=== PATIENT | male | born 1965 | race Caucasian/White ===

== ENCOUNTER 2023-05-03 02:24 | Outpatient (CLI) | payer MEDICAID, SELFPAY ==
--- NOTE | 2023-05-03 07:45 | DI.CT_ITS ---
Exam(s) CT NECK W EXAM: CT NECK W CLINICAL HISTORY: left zone II neck mass, R22.1. TECHNIQUE: Imaging Protocol: Axial computed tomography images with coronal and sagittal reformatted images were created and reviewed CONTRAST MATERIAL: Intravenous: Omnipaque 350 Contrast volume:100 ml contrast COMPARISON: None FINDINGS: Parotids: Right normal. Left: 1.8 x 1.8 x 2.5 centimeter smoothly marginated solid-appearing mass posterior inferior left pa rotid gland, superficial lobe.. Additional 6 millimeter nodule seen anteriorly. Both lesions show edgar ogeneous attenuation and homogeneous enhancement. Lymphadenopathy: There are scattered lymph nodes seen along the level one to level three all measuri ng less than 8 mm in short axis diameter which are physiologic in nature. The findings could represen t benign mixed tumor versus Warthin's tumor. Submandibular glands: Normal. Thyroid: Question a nodule at the lower pole of the right lobe. Carotids/Jugular: Mild plaque at the common carotid bulbs. No significant stenosis or dissection.. Soft tissues: The floor the mouth is unremarkable. The epiglottis and vocal cords are within normal limits. Lymph nodes: Within normal limits. Lungs: Dependent changes. Mild emphysematous changes. Bones: Degenerative changes of the cervical spine. Visualized portions of the brain and orbits: Unremarkable. Sinuses and mastoids: Clear. IMPRESSION: 1.8 by 2.5 centimeter circumscribed mass left parotid which could represent a benign mixed tumor vers us Warthin's tumor. RADIATION DOSE DELIVERED: 339.03mGy.cm Total DLP DATA REPOSITORY: All CT scans at this facility are submitted to the National Radiology Data Registry (NRDR) Dose Index Registry (DIR) with the [employer] ([employer]). RADIATION OPTIMIZATION: All CT scans at this facility use at least one of these dose optimization te chniques: automated exposure control; mA and/or kV adjustment per patient size (includes targeted exa ms where dose is matched to clinical indication); or iterative reconstruction.
[2023-05-03] MEDS: Omnipaque 350 MG/ML 100 ML BTL IJ (10:10)
[2023-05-03] MEDS: Normal Saline - Diluent 50 ML VIAL IJ (10:11)
== END 2023-05-03 02:44 ==
PROVIDERS: PCP Family Medicine; Visit Provider Otolaryngology
DX: R22.1 Localized swelling, mass and lump, neck (principal)
CPT/HCPCS: 70491; J3490

== ENCOUNTER 2023-06-07 14:44 | Outpatient (REF) | payer MEDICAID, SELFPAY ==
--- NOTE | 2023-06-07 10:10 | PAPNONF_PTH ---
PATIENT: Abdulkadir Lind LOC: [facility] U#:[id number] AGE/SX: 57/M ROOM: RE06/07/[address]: Arian Doss MD : 1965 BED: DIS: 06/07/2023 SPEC #: [id number] RECD: 06/07/23 18:06 STATUS: JONI REJusten #: [id number] NGHIA: 06/07/23 10:[address]: Arian Doss DEPT: REPLACED BY [facility] Cyt[facility] RECD BY: Tawanna Cash ENTERED: 06/07/23 18:08 SP TYPE: PATIRCE SANTIZO DR: Melo Ugalde Tissues: 1 - BODY FLUID CYTO-FINE NEEDLE ASPIRATE-[facility] Procedures: BODY FLUID CYTO-FINE NEEDLE ASPIRATE-[facility] Comments: [id number] (SUBMITTED IN CYT[facility]YT) (REFRIGERATED)
== END 2023-06-07 14:45 | disposition home or self-care (01) ==
LOC: LBN 14:44
PROVIDERS: PCP Family Medicine; Visit Provider Otolaryngology
DX: K11.8 Other diseases of salivary glands (principal)
CPT/HCPCS: 88104

== ENCOUNTER 2024-12-06 15:58 | Outpatient (CLI) | payer MEDICAID, SELFPAY ==
--- NOTE | 2024-12-06 10:00 | DI.RAD_ITS ---
Exam(s) XR SHOULDER RT COMPLETE 2+V EXAM: XR SHOULDER RT COMPLETE 2+V CLINICAL HISTORY: RIGHT SHOULDER PAIN. TECHNIQUE: 2D digital imaging was performed. Two views. COMPARISON: No exams were available for comparison FINDINGS: BONES: No acute fracture is present. No bony destructive lesion is seen. JOINTS: No dislocation present. No significant spurring at the AC joint or glenoid. Mild narrowing of the glenohumeral joint space. SOFT TISSUE: Normal. IMPRESSION: Mild degenerative changes. DATA REPOSITORY: RADIATION DOSE DELIVERED:
--- NOTE | 2024-12-06 10:15 | DI.RAD_ITS ---
Exam(s) XR CERVICAL SP FLOYD TRAUMA 2-3V EXAM: XR CERVICAL SP FLOYD TRAUMA 2-3V CLINICAL HISTORY: NECK PAIN. TECHNIQUE: 2D digital imaging was performed. Three views. COMPARISON: CT CT NECK W from 05/03/2023 FINDINGS: BONES: No fracture or destructive lesion. Vertebral bodies are unremarkable. DISKS: There is mild narrowing of the C4-5 disc space. There is moderate narrowing of the C5-6 and C 6-7 disc spaces. Endplate osteophytes are present at the levels. Intervertebral disc spaces are daryl ntained. ALIGNMENT: Degenerative straightening of the normal cervical lordosis. The odontoid and atlantoaxial articulations are normal. SOFT TISSUE: Normal. The lung apices are clear. IMPRESSION: Degenerative changes, greatest at C5-6 and C6-7. DATA REPOSITORY: RADIATION DOSE DELIVERED:
== END 2024-12-06 15:59 | disposition home or self-care (01) ==
LOC: DIORS 15:58
PROVIDERS: PCP Family Medicine; Visit Provider Student in an Organized Health Care Education/Training Program
DX: M25.511 Pain in right shoulder (principal); M54.2 Cervicalgia
CPT/HCPCS: 72040; 73030

== ENCOUNTER 2025-03-06 01:21 | Outpatient (CLI) | payer MEDICAID, SELFPAY ==
--- NOTE | 2025-03-06 07:15 | DI.US_ITS ---
Exam(s) US NEEDLE LOCAL OTHER WO RAD EXAM: Right thyroid nodules,ultrasound guided bx,e04.2 COMPARISON: No exams were available for comparison TECHNIQUE: Ultrasound performed using standard protocol. FINDINGS: Sonography was provided for Dr. Doss during the performance of a right thyroid nodule biopsies. P maxi refer to the procedure report for complete details. DATA REPOSITORY:
--- NOTE | 2025-03-06 11:20 | PAPNONF_PTH ---
PATIENT: Abdulkadir Lind LOC: [facility] U#:[id number] AGE/SX: 59/M ROOM: RE03/06/[address]: Arian Doss MD : 1965 BED: DIS: 03/06/2025 SPEC #: [id number] RECD: 03/06/25 13:14 STATUS: JONI REQ #: [id number] NGHIA: 03/06/25 11:[address]: Arian Doss DEPT: [facility] Cytology RECD BY: Tawanna Cash ENTERED: 03/06/25 13:15 SP TYPE: PATRICE SANTIZO DR: Melo Ugalde Tissues: 1 - BODY FLUID CYTO-FINE NEEDLE ASPIRATE-[facility] Procedures: BODY FLUID CYTO-FINE NEEDLE ASPIRATE-[facility] Comments: [id number] (PATH [facility] CONSULT) (REFRIGERATED)
--- NOTE | 2025-03-06 11:52 | W.PROCNOTE ---
Date of service: 03/06/25 Time of Service: 11:52 Procedure Note Date of procedure: 03/06/25 Procedure: Ultrasound-guided FNA, right thyroid nodule, pathology present Surgeon/Proceduralist/Physician: Arian Doss Procedure Diagnosis: Right thyroid nodule, TR 5, 2.7 cm Procedure Indications: The patient has 2 nodules in the right, both rated as TR 5's, although the smaller of the 2 measures roughly 1 cm x 1 cm x 0.9 cm and is largely cystic on ultrasound today. I discussed the options with the patient. After discussion we have chosen not to biopsy the smaller of the 2 lesions but rather just to follow it with serial ultrasounds. We will proceed with the FNA of the larger of the thyroid nodule so. Risks and benefits were discussed at length. Consent was filled out and signed. The below was then performed. Procedure Description: The patient was positioned in supine position with his neck slightly extended. He was prepped and draped in appropriate fashion and ultrasound used to localize the large thyroid nodule on the right. 1% lidocaine with 1/100,000 epinephrine was injected in the skin and subcutaneous tissues overlying the thyroid nodule and then a 25-gauge needle was passed repeatedly into the thyroid nodule. 3 passes were necessary to hit cellular adequacy. Once cellular adequacy had been verified by pathology, 2 additional passes were made for potential Afirma testing. The patient tolerated procedure well. There was no significant bleeding. After ensuring adequate hemostasis, sterile dressing was applied. Patient was allowed to sit, stand, and ambulate. His vital signs remained stable. He will remove the bandage in an hour or 2. He will avoid anything strenuous today. He may use Tylenol or ibuprofen for discomfort. He will call with any signs of infection or if he does not hear from me within 7 days with regard to pathology results. He had no further questions. He is comfortable with the plan.
== END 2025-03-06 01:41 ==
LOC: DI 01:22
PROVIDERS: PCP Family Medicine; Visit Provider Otolaryngology
DX: E04.2 Nontoxic multinodular goiter (principal)
CPT/HCPCS: 10005; 76942; 88104

== ENCOUNTER 2025-09-06 03:35 | Outpatient (CLI) | payer MEDICAID, SELFPAY ==
--- NOTE | 2025-09-06 06:30 | DI.US_ITS ---
Exam(s) US THYROID EXAM: US THYROID CLINICAL HISTORY: Assess for change, larger nodule, benign by biopsy,multinodular thyroid,e04. TECHNIQUE: Ultrasound thyroid performed using standard protocol. COMPARISON: US US THYROID/NECK/HEAD from 01/30/2025 FINDINGS: ISTHMUS: 4.3 mm RIGHT LOBE: Size: 6.6 x 1.8 x 1.8 cm Echogenicity: Normal. Vascularity: Normal. Nodules: There is a 2.7 x 1.8 x 2.3 cm nodule in the lower pole. This compares to 2.9 x 1.9 x 2.3 cm on the prior examination. The nodule is solid and isoechoic. There are punctate echogenic foci and a macrocalcification present. The findings are consistent with a TI rads level 5 nodule. There is also a mixed cystic and solid lesion measuring 1.1 x 0.9 x 1.0 cm. This is unchanged compared to the prior examination. Punctate calcifications are present. LEFT LOBE: Size: 5.5 x 1.9 x 1.3 cm Echogenicity: Normal. Vascularity: Normal. Nodules: None. OTHER FINDINGS: None. IMPRESSION: Stable right thyroid nodules. DATA REPOSITORY:
== END 2025-09-06 03:55 ==
LOC: DI 03:36
PROVIDERS: PCP Family Medicine; Visit Provider Otolaryngology
DX: E04.2 Nontoxic multinodular goiter (principal)
CPT/HCPCS: 76536